=== PATIENT | male | born 1960 | race Caucasian/White ===

== ENCOUNTER → 2018-09-27 | Outpatient (CLI) | payer OTHER ==
--- NOTE | 2018-09-27 16:24 | PCVCIMAG ---
APPROVED REPORT Study performed: 09/27/2018 14:07:43 Exam: Stress Echocardiogram Indication: CAD CORONARY CALCIUM SCORE>400 Patient Location: Echo lab Stress Nurse: Bernie Espinal RN Room #: 2 Status: routine Ht: 6 ft 0 in HR: 96 bpm BP: 122/68 mmHg Rhythm: NSR Medical History Medical History: elev cor ca Previous Cardiac Procedures: none Pretest Chest Pain Characteristics: No chest pain Exercise History: Indeterminate Procedure The patient underwent an Exercise Stress Test using the Angel Protocol. Blood pressure, heart rate, and EKG were monitored. An Echocardiogram was performed by veterinary technician instructor in four stages in quad fashion. At peak stress, four selected images were obtained and placed side by side with resting images for comparison. Stress Test Details Stress Test: Exercise stress testing was performed using a Angel protocol. HR Resting HR: 96 bpmMax Heart Rate (APMHR): 161 bpm Max HR Achieved: 157 bpmTarget HR (85% APMHR): 136 bpm % of APMHR: 97 Recovery HR: 104 bpm HR response to stress: Normal HR response to stress BP Resting BP: 122/68 mmHg Max BP: 194/90 mmHg Recovery BP: 136/68 mmHg ECG Resting ECG: Sinus Rhythm Stress ECG: Sinus Rhythm ST Change: Non-ischemic Arrhythmia: rare PVC,one short run SVT 3 beats Recovery ECG: Sinus Rhythm Recovery ST Change: Non-ischemic Recovery Arrhythmia: None Clinical Reason for Termination: Maximal effort Stress Symptoms: none Exercise duration: 7 min 03 sec Highest Stage Achieved: Stage 3: 3.4 mph at 14% grade. Exercise capacity: 10.1 METs Overall Exercise Capacity for Age: Poor Scale: Sedentary Angina Score: None No complications. Stress ECG Conclusion The resting heart rate of 96 bpm annie to a maximum heart rate of 157 bpm. This value represent 97 % of the maximal, age-predicted heart rate. The resting blood pressure of 122/68 mmHg, annie to a maximum blood pressure of 194/90 mmHg. The exercise test was stopped due to fatigue. Pre-Stress Echo The resting Echocardiogram showed normal left ventricular contractility with an estimated Ejection Fraction of about 55-60%. Normal wall motion in all segments on baseline images. Post-Stress Echo The stress Echocardiogram showed normal left ventricular contractility with an estimated Ejection Fraction of about 65-70%. Normal augmentation of wall motion in all segments on post stress images. Clinical No clinical or ECG evidence for ischemia. Conclusion Clinical Response: Non-ischemic Exercise Capacity: Average Stress ECG Response: Non-ischemic Stress Echo Images: Non-ischemic No clinical, EKG or echocardiographic evidence for ischemia. No echocardiographic evidence for exercise induced ischemia. Normal stress echocardiogram with maximal exercise stress. No prior study available for comparison. <Conclusion> No clinical, EKG or echocardiographic evidence for ischemia. No echocardiographic evidence for exercise induced ischemia. Normal stress echocardiogram with maximal exercise stress.
== END | disposition home or self-care (01) ==
LOC: PCVCIMAG 13:55
PROVIDERS: ATTEND Internal Medicine Cardiovascular Disease
DX: I25.10 Atherosclerotic heart disease of native coronary artery without angina pectoris (principal); R93.1 Abnormal findings on diagnostic imaging of heart and coronary circulation
CPT/HCPCS: 93325; 93351